=== PATIENT | male | born 2000 | race Caucasian/White ===

== ENCOUNTER 2024-03-24 05:45 | Emergency (ER) | payer OTHER ==
[~2024-03-24] VITALS: Ht 180.3 cm; Wt 101.7 kg
[2024-03-24] MEDS ORDERED: ACETAMINOPHEN 500 MG TAB PO ONE (06:00)
[2024-03-24 07:07] VITALS: BP 128/72
== END 2024-03-24 07:08 | disposition home or self-care (01) ==
LOC: ED 05:45
DX: S63.501A Unspecified sprain of right wrist, initial encounter (principal); X50.0XXA Overexertion from strenuous movement or load, initial encounter
CPT/HCPCS: 73130; 99283; A9270

== ENCOUNTER 2024-05-10 18:49 | Emergency (ER) | payer OTHER ==
[~2024-05-10] VITALS: Ht 180.3 cm; Wt 101.6 kg
[2024-05-10] MEDS ORDERED: SODIUM CHLORIDE 0.9% 500 ML IV ONE (19:15)
[2024-05-10 19:25] LABS: BASOPHILS 0.6 % (0-2); HEMATOCRIT 44.2 % (35.0-50.0); HEMOGLOBIN 15.5 g/dL (12.0-18.0); LYMPHOCYTES 25.7 % (24-44); MCH 29.9 (27-36); MCHC 35.2 g/dl (30-36); MCV 84.9 fl (81-99); MONOCYTES 6.7 % (0-12); PLATELET COUNT 357 K/uL (140-440); RBC 5.21 M/ul (4.3-5.7); RDW 13.7 (10.5-15.0)
[2024-05-10 19:33] LABS: BILIRUBIN, URINE NEGATIVE (negative); BLOOD/HGB, URINE NEGATIVE (Negative); KETONE, URINE NEGATIVE (Negative); LEUK ESTERASE, URINE NEGATIVE (negative); NITRITE, URINE NEGATIVE (negative)
[2024-05-10 19:40] LABS: ALBUMIN 3.9 g/dL (3.4-5.0); ANION GAP 12.6 (7-21); BILIRUBIN, TOTAL 0.6 ng/dL (0.2-1.0); BUN/CREATININE RATIO 10.78 (6.0-28.6); CALCIUM 9.3 mg/dL (8.5-10.1); CREATININE, SERUM 1.02 mg/dL (0.70-1.30); MAGNESIUM 1.9 mg/dL (1.8-2.4); POTASSIUM 3.6 mmol/L (3.5-5.1); PROTEIN, TOTAL 7.8 g/dL (6.4-8.2)
[2024-05-10] MEDS ORDERED: ondansetron HCL 4 MG/2 ML VIAL IV ONE (19:45)
[2024-05-10 20:23] LABS: INFLUENZA B NAA NEGATIVE (NEGATIVE); RESPIRATORY SYNCYTIAL VIR NAA NEGATIVE (NEGATIVE)
[2024-05-10] MEDS ORDERED: ONDANSETRON ODT8 MG PO (21:06)
[2024-05-10] MEDS ORDERED: ONDANSETRON 4 MG HOME.PACK SL ONE (21:15)
[2024-05-10 21:26] VITALS: BP 111/64
== END 2024-05-10 21:26 | disposition home or self-care (01) ==
LOC: ED 18:49
PROVIDERS: Family Medicine
DX: R11.2 Nausea with vomiting, unspecified (principal)
CPT/HCPCS: 36415; 80053; 81003; 83735; 85025; 87502; 99284; A9270; J7040; U0002